=== PATIENT | male | born 1955 | race Caucasian/White ===

== ENCOUNTER → 2017-12-10 | Outpatient (CLI) | payer OTHER | LOC: COL.RAD 09:29 | DX: M51.26 Other intervertebral disc displacement, lumbar region (principal); M47.897 Other spondylosis, lumbosacral region ==

== ENCOUNTER → 2018-01-02 | Outpatient (CLI) | payer OTHER ==
[~2018-01-02] VITALS: Ht 190.5 cm; Wt 80.1 kg
[~2018-01-02] MED LIST: LEVOXYL0.075 MG PO
[2018-01-02 08:59] VITALS: BP 136/87; PULSE 54
[2018-01-02 09:40] VITALS: BP 128/93; PULSE 51
== END ==
LOC: COL.RAD 08:41
DX: M51.9 Unspecified thoracic, thoracolumbar and lumbosacral intervertebral disc disorder (principal)
CPT/HCPCS: J3301

== ENCOUNTER 2018-03-11 13:27 | Emergency (ER) | payer OTHER ==
[~2018-03-11] VITALS: Ht 190.5 cm; Wt 81.8 kg
[2018-03-11 13:40] VITALS: TEMP 97.5
[2018-03-11] MEDS ORDERED: NORCO 325 MG-51 TAB PO (14:43)
[2018-03-11] MEDS ORDERED: ZOFRAN ODT4 MG PO (14:43)
[2018-03-11 15:18] VITALS: BP 110/65; PULSE 56
== END 2018-03-11 15:20 | disposition home or self-care (01) ==
LOC: ZMSC 13:27 → COL.ER 13:27
DX: S46.212A Strain of muscle, fascia and tendon of other parts of biceps, left arm, initial encounter (principal); E03.9 Hypothyroidism, unspecified; W20.8XXA Other cause of strike by thrown, projected or falling object, initial encounter; Y92.89 Other specified places as the place of occurrence of the external cause

== ENCOUNTER → 2018-10-04 | Outpatient (CLI) | payer OTHER ==
[~2018-10-04] VITALS: Ht 190.5 cm; Wt 80.9 kg
[~2018-10-04] MED LIST changes: +NORCO 325 MG-51 TAB PO; +ZOFRAN ODT4 MG PO
[2018-10-04 13:15] VITALS: BP 142/96; PULSE 61
--- NOTE | 2018-10-04 13:30 | NUR ---
Pt out to car per wheelchair. Pt up and into car without assistance. Denies pain.
== END ==
LOC: COL.RAD 11:45
DX: M51.36 Other intervertebral disc degeneration, lumbar region (principal)
CPT/HCPCS: J3301

== ENCOUNTER → 2019-06-20 | Outpatient (CLI) | payer OTHER | LOC: COL.CARD 08:26 | DX: R00.2 Palpitations (principal) ==

== ENCOUNTER → 2020-08-03 | Outpatient (CLI) | payer OTHER | LOC: COL.RAD 07-27 13:00 | DX: R55 Syncope and collapse (principal); R42 Dizziness and giddiness ==

== ENCOUNTER → 2020-08-11 | Outpatient (CLI) | payer OTHER | LOC: COL.CARD 11:07 | DX: R55 Syncope and collapse (principal) ==

== ENCOUNTER → 2020-09-09 | Outpatient (CLI) | payer OTHER | LOC: COL.CARD 12:18 | DX: R55 Syncope and collapse (principal) ==